=== PATIENT | female | born 1995 | race American Indian/Alaskan Native ===

== ENCOUNTER 2017-10-21 03:07 | Emergency (ER) | payer SELFPAY ==
[2017-10-21 05:09] VITALS: BP 110/70
--- NOTE | 2017-10-21 05:42 | XRay Report ---
FINAL REPORT PROCEDURE: XR SHOULDER 2+V RT TECHNIQUE: Right shoulder radiographs including AP views in internal and external rotation and abduction. CPT 56144 HISTORY: right shoulder pain and numbness COMPARISON: No prior studies are available for comparison. FINDINGS: Fracture (s) and/or Dislocation(s): None . Joint space(s): Normal . Soft tissues: Normal . Bone mineralization: Normal . Foreign bodies: None . IMPRESSION: Normal Examination
[2017-10-21] MEDS ORDERED: TORADOL IM ONE (09:44)
--- NOTE | 2017-10-21 09:48 | Emergency Department Report ---
HPI - General Chief Complaint: Pain General Time Seen by Provider: 10/21/17 09:36 - HPI HPI: 22-year-old female presents to the emergency department with complaint of some pain that has been going from the top of her shoulder down the right arm and last night. Earlier today she also feels like the discomfort went down into her leg but that has since resolved. She says it is a painful sensation but she also describes it as "if all of the blood has drained." She says that the symptoms make her feel like she has some weakness in the arm. She denies any headache, vision change, slurred speech, numbness or any other neurological deficits. She does not have any primary care physician. She denies any past medical history. She took 2 Tylenol for her symptoms without much relief. She says that this kept her from getting sleep last night. ED Past Medical Hx - Past Medical History Hx Asthma: Yes - Surgical History Past Surgical History?: No - Social History Smoking Status: Never Smoker Substance Use Type: Alcohol, Marijuana - Medications Home Medications: Home Medications Medication Instructions Recorded Confirmed Last Taken Type Cyclobenzaprine HCl [Flexeril 5 MG 5 mg PO TID PRN #10 tab 10/21/17 Unknown Rx TAB] ED Review of Systems ROS: Stated complaint: RT SIDE PAIN/NUMBNESS Other details as noted in HPI Comment: All other systems reviewed and negative Constitutional: denies: chills, fever Eyes: denies: eye pain, eye discharge, vision change ENT: denies: ear pain, throat pain Respiratory: denies: cough, shortness of breath, wheezing Cardiovascular: denies: chest pain, palpitations Gastrointestinal: denies: abdominal pain, nausea, diarrhea Genitourinary: denies: urgency, dysuria, discharge Musculoskeletal: arthralgia. denies: joint swelling Skin: denies: rash, lesions Neurological: weakness. denies: numbness Physical Exam - Physical Exam Vital Signs: Vital Signs 10/21/17 05:01 Temperature 98.3 F Pulse Rate 77 Respiratory 14 Rate Blood Pressure 110/70 O2 Sat by Pulse 100 Oximetry Physical Exam: GENERAL: The patient is well-developed well-nourished. HENT: Normocephalic. Atraumatic. Patient has moist mucous membranes. EYES: Extraocular motions are intact. NECK: Supple. Trachea is midline. CHEST/LUNGS: Clear to auscultation. There is no respiratory distress noted. HEART/CARDIOVASCULAR: Regular. There is no tachycardia. There is no murmur. ABDOMEN: There is no abdominal distention. SKIN: Skin is warm and dry. NEURO: The patient is awake, alert, and oriented. The patient is cooperative. The patient has no focal neurologic deficits. The patient has normal speech. MUSCULOSKELETAL: There is no tenderness or deformity. There is no limitation range of motion. There is no evidence of acute injury. Cap refill less than 2 seconds and radial pulse +2 over 4 to the affected right upper extremity. ED Course Vital Signs 10/21/17 05:01 Temperature 98.3 F Pulse Rate 77 Respiratory 14 Rate Blood Pressure 110/70 O2 Sat by Pulse 100 Oximetry - Reevaluation(s) Reevaluation #1: 10/21/17 09:47 NIH Stroke Scale/Score (NIHSS) RESULT SUMMARY: 0 points NIH Stroke Scale INPUTS: 1A: Level of consciousness > 0 = Alert; keenly responsive 1B: Ask month and age > 0 = Both questions right 1C: 'Blink eyes' & 'squeeze hands' > 0 = Performs both tasks 2: Horizontal extraocular movements > 0 = Normal 3: Visual mccoy > 0 = No visual loss 4: Facial palsy > 0 = Normal symmetry 5A: Left arm motor drift > 0 = No drift for 10 seconds 5B: Right arm motor drift > 0 = No drift for 10 seconds 6A: Left leg motor drift > 0 = No drift for 5 seconds 6B: Right leg motor drift > 0 = No drift for 5 seconds 7: Limb Ataxia > 0 = No ataxia 8: Sensation > 0 = Normal; no sensory loss 9: Language/aphasia > 0 = Normal; no aphasia 10: Dysarthria > 0 = Normal 11: Extinction/inattention > 0 = No abnormality ED Medical Decision Making - Radiology Data Radiology results: image reviewed interpreted by me: X-ray of the right shoulder does not show any fracture, dislocation or any acute process. - Medical Decision Making The patient's complaints sound like it could be paresthesia versus peripheral neuropathy. Unknown at this time why it would go down and affect the right lower extremity but this is not bothering her and has resolved. Physical examination there is no signs of any weakness, numbness or any neurological deficits. X-ray was done of the right shoulder, since that is where she complains of the most discomfort, but there is no fracture, dislocation or any acute process. Vital signs stable throughout her ED course. She is kind of tight to the trapezius muscles and will be sent home with some muscle relaxers. She has been encouraged to follow up with primary care physician and return to the ER if any worsening of her symptoms or any acute distress. - Differential Diagnosis peripheral neuropathy, paresthesias, arthritis, muscle spasm Critical Care Time: No Critical care attestation.: If time is entered above; I have spent that time in minutes in the direct care of this critically ill patient, excluding procedure time. ED Disposition Clinical Impression: Right arm pain Right shoulder pain Qualifiers: Chronicity: acute Qualified Code(s): M25.511 - Pain in right shoulder Disposition: DC-01 TO HOME OR SELFCARE Is pt being admited?: No Condition: Stable Instructions: Peripheral Neuropathy (ED), Paresthesia (ED), Arthralgia (ED) Additional Instructions: I have given you multiple referrals for primary care clinics in the area and I encourage you to follow-up in the next few days if possible. I have also given you a referral for a local orthopedist, Dr. Ruelas, to follow up regarding your arm and/or shoulder pains. Return to the emergency Department with any worsening of your symptoms or any acute distress. You have been prescribed a medication that is sedating and therefore should not be taken prior to driving, working, and responsible for children and in no way should be mixed with alcohol of any quantity. Prescriptions: Cyclobenzaprine HCl [Flexeril 5 MG TAB] 5 mg PO TID PRN #10 tab PRN Reason: Muscle Spasm Referrals: JAZZ FATIMA MD [Primary Care Provider] - 3-5 Days TYRELL RUELAS MD [Staff Physician] - 3-5 Days [facility] [Outside] - 3-5 Days [facility] [Outside] - 3-5 Days [facility] [Outside] - 3-5 Days Time of Disposition: 09:49
== END 2017-10-21 10:08 | disposition home or self-care (01) ==
LOC: ED 03:07
DX: M25.511 Pain in right shoulder (principal); J45.909 Unspecified asthma, uncomplicated; F12.10 Cannabis abuse, uncomplicated
CPT/HCPCS: 73030; 96372; 99283; J1885

== ENCOUNTER 2021-09-17 19:37 | Emergency (ER) | payer SELFPAY ==
[2021-09-18] MEDS ORDERED: LIDOCAINE 2%/EPINEPHRINE 1:200,000 VIAL (20 ML) INFILTRATI ONE (00:05)
--- NOTE | 2021-09-18 01:02 | Emergency Department Report ---
- General Chief Complaint: Wound/Laceration Stated Complaint: RT FOREARM LACERATION Source: patient Mode of arrival: Ambulatory Limitations: No Limitations - History of Present Illness Initial Comments: 26-year-old female presents to the ED complaining of laceration to the right arm x1 day. Patient states that she was walking in some high-heeled shoes when she slipped and fell causing a laceration to her right forearm. No bleeding is noted at present time. She has been able to move extremity without any difficulty. She states that she has been cleaning the wound with peroxide. Patient able to move extremity without any difficulty. She denies any fever chills. Patient is alert and oriented x3. No acute distress noted. No ill appearance noted. Patient states pain is a 0 out of 10 at present time. - Related Data Previous Rx's Medication Instructions Recorded Last Taken Type Cyclobenzaprine HCl [Flexeril 5 MG 5 mg PO TID PRN #10 tab 10/21/17 Unknown Rx TAB] cephALEXin [Keflex] 500 mg PO Q12HR 10 Days #20 cap 09/18/21 Unknown Rx Allergies Allergy/AdvReac Type Severity Reaction Status Date / Time No Known Allergies Allergy Unverified 10/21/17 05:09 ED Review of Systems ROS: Stated complaint: RT FOREARM LACERATION Other details as noted in HPI Constitutional: denies: chills, fever Eyes: denies: eye pain, eye discharge, vision change ENT: denies: ear pain, throat pain Respiratory: denies: cough, shortness of breath, wheezing Cardiovascular: denies: chest pain, palpitations Endocrine: no symptoms reported Gastrointestinal: denies: abdominal pain, nausea, diarrhea Genitourinary: denies: urgency, dysuria, discharge Musculoskeletal: denies: back pain, joint swelling, arthralgia Skin: other (skin laceration). denies: rash, lesions Neurological: denies: headache, weakness, paresthesias Psychiatric: denies: anxiety, depression Hematological/Lymphatic: denies: easy bleeding, easy bruising ED Past Medical Hx - Past Medical History Hx Asthma: Yes - Social History Smoking Status: Never Smoker Substance Use Type: Alcohol, Marijuana - Medications Home Medications: Home Medications Medication Instructions Recorded Confirmed Last Taken Type Cyclobenzaprine HCl [Flexeril 5 MG 5 mg PO TID PRN #10 tab 10/21/17 Unknown Rx TAB] cephALEXin [Keflex] 500 mg PO Q12HR 10 Days #20 cap 09/18/21 Unknown Rx ED Physical Exam - General Limitations: No Limitations General appearance: alert, in no apparent distress - Head Head exam: Present: atraumatic, normocephalic - Eye Eye exam: Present: normal appearance - ENT ENT exam: Present: mucous membranes moist - Neck Neck exam: Present: normal inspection - Respiratory Respiratory exam: Present: normal lung sounds bilaterally. Absent: respiratory distress - Cardiovascular Cardiovascular Exam: Present: regular rate, normal rhythm. Absent: systolic murmur, diastolic murmur, rubs, gallop - GI/Abdominal GI/Abdominal exam: Present: soft, normal bowel sounds - Extremities Exam Extremities exam: Present: normal inspection - Back Exam Back exam: Present: normal inspection - Neurological Exam Neurological exam: Present: alert, oriented X3 - Psychiatric Psychiatric exam: Present: normal affect, normal mood - Skin Skin exam: Present: warm, dry, intact, normal color, other (wound). Absent: rash ED Course Vital Signs 09/17/21 19:41 Temperature 98.1 F Pulse Rate 96 H Respiratory 18 Rate Blood Pressure 122/76 O2 Sat by Pulse 97 Oximetry ED Medical Decision Making - Medical Decision Making 26-year-old female presents to the ED complaining of laceration to the right arm x1 day. Patient states that she was walking in some high-heeled shoes when she slipped and fell causing a laceration to her right forearm. No bleeding is noted at present time. She has been able to move extremity without any difficulty. She states that she has been cleaning the wound with peroxide. Patient able to move extremity without any difficulty. She denies any fever chills. Patient is alert and oriented x3. No acute distress noted. No ill appearance noted. Patient states pain is a 0 out of 10 at present time. Physical exam the patient has a 2 cm open wound noted to the right forearm. Wound cleaned with Betadine and apply sterile dressing. Rechecked the patient is resting quietly quietly and comfortable and feeling better. I discussed the results of diagnostic study, my clinical impression and the plan for further treatment with the patient. Patient agrees with plan and discharge at this present time. All question addressed. I have given the patient instruction regarding a diagnosis ,expectation ,follow- up and return precaution. I explained to the patient that emergent condition may arise and to return to the ED for new worsen and any new persisting condition. I have explained the importance of following up with the primary care physician or referral physician listed below has instructed. The patient verbalized understanding of discharge instruction. Critical care attestation.: If time is entered above; I have spent that time in minutes in the direct care of this critically ill patient, excluding procedure time. ED Disposition Clinical Impression: Laceration Disposition: HOME / SELF CARE / HOMELESS Is pt being admited?: No Does the pt Need Aspirin: No Condition: Stable Instructions: Wound Infection, [id number], Wound Care, Adult Additional Instructions: Take medication as prescribed Keep wound clean and dry Return to ED for any worsening symptom Prescriptions: cephALEXin [Keflex] 500 mg PO Q12HR 10 Days #20 cap Referrals: JILLIAN COCHRAN MD [Primary Care Provider] - 3-5 Days Time of Disposition: 01:05
[2021-09-18] MEDS ORDERED: TETANUS,DIPH,PERTUSS(ACELL) VACCINE 0.5 ML SYRINGE IM ONE (01:05)
[2021-09-18 01:28] VITALS: BP 127/79
== END 2021-09-18 01:28 | disposition home or self-care (01) ==
LOC: ED 19:37
DX: S51.811A Laceration without foreign body of right forearm, initial encounter (principal); W01.0XXA Fall on same level from slipping, tripping and stumbling without subsequent striking against object, initial encounter; Y93.89 Activity, other specified; Y92.89 Other specified places as the place of occurrence of the external cause; Y99.8 Other external cause status
CPT/HCPCS: 90471; 90715; 99282; J3490